=== PATIENT | female | born 1945 | race Caucasian/White ===

== ENCOUNTER 2018-06-12 14:55 | Inpatient (IN) | payer MEDICARE ==
[~2018-06-12] VITALS: Ht 167.6 cm; Wt 82.3 kg
[2018-06-12] MEDS ORDERED: SODIUM CHLORIDE FLUSH 10ML SYR IVF ONE (16:00)
[2018-06-12 16:56] LABS: MICROSCOPIC INDICATED
[2018-06-12 17:02] LABS: CULTURE INDICATED? YES
[2018-06-12 17:04] LABS: MEAN CORPUSCULAR HEMOGLOBIN 30.3 pg (27.0-34.8); MEAN CORPUSCULAR HGB CONC 33.6 g/dL (32.4-35.8); MEAN CORPUSCULAR VOLUME 90.3 fL (80-100); MEAN PLATELET VOLUME 8.5 fL (7.4-10.4); PLATELET COUNT 397 x10^3/uL (130-400); RED BLOOD COUNT 4.58 x10^6/uL (3.82-5.3); RED CELL DISTRIBUTION WIDTH 14.4 % (9.6-15.2)
[2018-06-12 17:14] LABS: ALANINE AMINOTRANSFERASE 15 U/L (12-78); ALBUMIN 3.2 g/dL (3.4-5.0); ANION GAP 11 mmol/L (5-15); CALCIUM 9.7 mg/dL (8.5-10.1); CHLORIDE 118 mmol/L (98-107)
[2018-06-12 17:19] LABS: ALKALINE PHOSPHATASE 131 U/L (45-117); BILIRUBIN,TOTAL 0.6 mg/dL (0.2-1.0); CREATININE 1.35 mg/dL (0.55-1.02); FREE T4 (FREE THYROXINE) 1.35 ng/dL (0.76-1.46); TROPONIN I < 0.015 ng/mL (0.000-0.045)
[2018-06-12 17:25] LABS: BASOPHILS # (AUTO) 0.09 x10^3/uL (0-0.1); BASOPHILS % (AUTO) 0 % (0-1); EOSINOPHILS # (AUTO) 0.68 x10^3/uL (0-0.4); EOSINOPHILS % (AUTO) 3 % (1-7); LYMPHOCYTES # (AUTO) 3.46 x10^3/uL (1-3.4); LYMPHOCYTES % (AUTO) 14 % (22-44); MD SCAN; MONOCYTES # (AUTO) 1.37 x10^3/uL (0.2-0.8); MONOCYTES % (AUTO) 5 % (2-9); NEUTROPHILS # (AUTO) 20.09 x10^3/uL (1.8-6.8); NEUTROPHILS % (AUTO) 78 % (42-75)
[2018-06-12] MEDS ORDERED: ACETAMINOPHEN 325 MG TABLET PO PRN (18:00)
[2018-06-12] MEDS ORDERED: CEFTRIAXONE PMX 1GM/50ML 50 ML IV ONE (18:00)
[2018-06-12] MEDS ORDERED: BISACODYL 10 MG SUPP PR PRN (18:00)
[2018-06-12] MEDS: SODIUM CHLORIDE 0.45% 1,000 ML IV SCH ×2 (18:00→18:13)
[2018-06-12] MEDS ORDERED: SODIUM CHLORIDE 0.9% 1,000ML IVBOLUS ONE (18:00)
[2018-06-12] MEDS ORDERED: POLYETHYLENE GLYCOL 17 GM PACKET PO PRN (18:00)
[2018-06-12] MEDS ORDERED: SODIUM CHLORIDE 0.45% 1,000 ML IV SCH ×2 (18:00)
[2018-06-12] MEDS ORDERED: CEFTRIAXONE PMX 1GM/50ML 50 ML ONE (18:06)
[2018-06-12 18:19] LABS: HEMOGLOBIN A1C 7.8 % (4.2-6.3)
[2018-06-12 19:32] VITALS: BP 109/73
[2018-06-12] MEDS: HEPARIN 5,000 UNITS/ML, 1ML SQ SCH (20:53)
[2018-06-12] MEDS ORDERED: insulin (20:59)
[2018-06-13 00:36] VITALS: BP 137/77
[2018-06-13] MEDS ORDERED: LISI40TA PO (03:21)
[2018-06-13] MEDS ORDERED: ATOR40TA78 PO (03:21)
[2018-06-13] MEDS ORDERED: METF10007 PO (03:21)
[2018-06-13] MEDS ORDERED: CLOP75TA PO (03:21)
[2018-06-13] MEDS ORDERED: ASPI81TA45 PO (03:21)
[2018-06-13] MEDS ORDERED: TAMS0.4C2 PO (03:21)
[2018-06-13] MEDS ORDERED: GABA300C10 PO (03:21)
[2018-06-13] MEDS ORDERED: AMLO10TA6 PO (03:21)
[2018-06-13] MEDS ORDERED: GLIP5TAB22 PO (03:21)
[2018-06-13] MEDS: SODIUM CHLORIDE 0.45% 1,000 ML IV SCH ×2 (03:32→11:30)
[2018-06-13 05:06] LABS: BASOPHILS # (AUTO) 0.04 x10^3/uL (0-0.1); BASOPHILS % (AUTO) 0 % (0-1); EOSINOPHILS # (AUTO) 0.36 x10^3/uL (0-0.4); EOSINOPHILS % (AUTO) 2 % (1-7); LYMPHOCYTES # (AUTO) 2.46 x10^3/uL (1-3.4); LYMPHOCYTES % (AUTO) 14 % (22-44); MD NO; MEAN CORPUSCULAR HEMOGLOBIN 29.5 pg (27.0-34.8); MEAN CORPUSCULAR HGB CONC 32.6 g/dL (32.4-35.8); MEAN CORPUSCULAR VOLUME 90.4 fL (80-100); MEAN PLATELET VOLUME 8.5 fL (7.4-10.4); MONOCYTES # (AUTO) 0.76 x10^3/uL (0.2-0.8); MONOCYTES % (AUTO) 4 % (2-9); NEUTROPHILS # (AUTO) 13.43 x10^3/uL (1.8-6.8); NEUTROPHILS % (AUTO) 79 % (42-75); PLATELET COUNT 300 x10^3/uL (130-400); RED CELL DISTRIBUTION WIDTH 14.4 % (9.6-15.2)
[2018-06-13 05:14] LABS: ALANINE AMINOTRANSFERASE 14 U/L (12-78); ALBUMIN 2.8 g/dL (3.4-5.0); ANION GAP 6 mmol/L (5-15); CALCIUM 9.6 mg/dL (8.5-10.1); CHLORIDE 118 mmol/L (98-107)
[2018-06-13 05:17] LABS: ALKALINE PHOSPHATASE 120 U/L (45-117); BILIRUBIN,TOTAL 0.7 mg/dL (0.2-1.0); CREATININE 1.11 mg/dL (0.55-1.02); TOTAL PROTEIN 6.3 g/dL (6.4-8.2)
[2018-06-13] MEDS: HEPARIN 5,000 UNITS/ML, 1ML SQ SCH ×3 (05:47→21:54)
[2018-06-13] MEDS ORDERED: CEFTRIAXONE PMX 1GM/50ML 50 ML IV SCH (06:00)
[2018-06-13 08:53] VITALS: BP 153/83
[2018-06-13] MEDS: SENNA/DOCUSATE TABLET PO SCH (09:45)
[2018-06-13 12:30] VITALS: BP 145/82
[2018-06-13] MEDS: SODIUM CHLORIDE 0.9% 1,000 ML IV SCH ×2 (13:59→21:55)
[2018-06-13] MEDS: CEFTRIAXONE PMX 2GM/50ML 50 ML IV SCH (18:30)
[2018-06-13 19:26] VITALS: BP 152/85
[2018-06-13] MEDS: ATORVASTATIN 20 MG TABLET PO SCH (21:54)
[2018-06-14 00:36] VITALS: BP 154/79
[2018-06-14 05:04] LABS: BASOPHILS # (AUTO) 0.06 x10^3/uL (0-0.1); BASOPHILS % (AUTO) 0 % (0-1); EOSINOPHILS # (AUTO) 0.46 x10^3/uL (0-0.4); EOSINOPHILS % (AUTO) 3 % (1-7); LYMPHOCYTES # (AUTO) 2.18 x10^3/uL (1-3.4); LYMPHOCYTES % (AUTO) 13 % (22-44); MD NO; MEAN CORPUSCULAR HEMOGLOBIN 30.2 pg (27.0-34.8); MEAN CORPUSCULAR HGB CONC 33.6 g/dL (32.4-35.8); MEAN CORPUSCULAR VOLUME 89.9 fL (80-100); MEAN PLATELET VOLUME 8.6 fL (7.4-10.4); MONOCYTES # (AUTO) 0.67 x10^3/uL (0.2-0.8); MONOCYTES % (AUTO) 4 % (2-9); NEUTROPHILS # (AUTO) 12.84 x10^3/uL (1.8-6.8); NEUTROPHILS % (AUTO) 79 % (42-75); PLATELET COUNT 288 x10^3/uL (130-400); RED BLOOD COUNT 5.26 x10^6/uL (3.82-5.3); RED CELL DISTRIBUTION WIDTH 14.2 % (9.6-15.2)
[2018-06-14 05:10] LABS: ANION GAP 5 mmol/L (5-15); CALCIUM 9.2 mg/dL (8.5-10.1); CHLORIDE 114 mmol/L (98-107); CREATININE 0.47 mg/dL (0.55-1.02)
[2018-06-14] MEDS: HEPARIN 5,000 UNITS/ML, 1ML SQ SCH ×3 (05:41→20:59)
[2018-06-14] MEDS: ASPIRIN 81 MG TABLET EC PO SCH ×2 (05:41→05:49)
[2018-06-14] MEDS: SODIUM CHLORIDE 0.9% 1,000 ML IV SCH (05:42)
[2018-06-14 07:00] VITALS: BP 138/78
[2018-06-14] MEDS ORDERED: POTASSIUM CHLORIDE 20 MEQ TAB.ER.PRT PO ONE (07:00)
[2018-06-14] MEDS: CLOPIDOGREL 75 MG TABLET PO SCH (07:50)
[2018-06-14] MEDS: SENNA/DOCUSATE TABLET PO SCH (07:50)
[2018-06-14] MEDS ORDERED: SODIUM CHLORIDE 0.45% 1,000 ML IV SCH (08:30)
[2018-06-14] MEDS ORDERED: POTASSIUM CHLORIDE 40 MEQ in SODIUM CHLORIDE 0.9% 500 ML IV ONE (08:30)
[2018-06-14] MEDS ORDERED: INSULIN LISPRO 100 UNITS/ML, PEN SQ-INSULIN SCH (09:00)
[2018-06-14 12:19] VITALS: BP 155/91
[2018-06-14] MEDS: INSULIN LISPRO 100 UNITS/ML, PEN SQ-INSULIN SCH ×2 (16:09→21:00)
[2018-06-14] MEDS: D5%-0.45% NACL 1,000 ML IV SCH (16:30)
[2018-06-14] MEDS: CEFTRIAXONE PMX 2GM/50ML 50 ML IV SCH (17:53)
[2018-06-14 18:42] VITALS: BP 144/79
[2018-06-14] MEDS: ATORVASTATIN 20 MG TABLET PO SCH (20:58)
[2018-06-15 00:45] VITALS: BP 149/81
[2018-06-15] MEDS: D5%-0.45% NACL 1,000 ML IV SCH ×3 (03:35→22:45)
[2018-06-15 05:12] LABS: BASOPHILS # (AUTO) 0.06 x10^3/uL (0-0.1); BASOPHILS % (AUTO) 0 % (0-1); EOSINOPHILS # (AUTO) 0.29 x10^3/uL (0-0.4); EOSINOPHILS % (AUTO) 2 % (1-7); LYMPHOCYTES # (AUTO) 2.51 x10^3/uL (1-3.4); LYMPHOCYTES % (AUTO) 19 % (22-44); MD NO; MEAN CORPUSCULAR HGB CONC 33.4 g/dL (32.4-35.8); MEAN CORPUSCULAR VOLUME 89.9 fL (80-100); MEAN PLATELET VOLUME 8.6 fL (7.4-10.4); MONOCYTES # (AUTO) 0.66 x10^3/uL (0.2-0.8); MONOCYTES % (AUTO) 5 % (2-9); NEUTROPHILS # (AUTO) 9.92 x10^3/uL (1.8-6.8); NEUTROPHILS % (AUTO) 74 % (42-75); PLATELET COUNT 278 x10^3/uL (130-400); RED BLOOD COUNT 4.84 x10^6/uL (3.82-5.3); RED CELL DISTRIBUTION WIDTH 14.3 % (9.6-15.2)
[2018-06-15 05:22] LABS: CHLORIDE 111 mmol/L (98-107)
[2018-06-15 05:26] LABS: ANION GAP 7 mmol/L (5-15); CALCIUM 8.5 mg/dL (8.5-10.1); CREATININE 0.44 mg/dL (0.55-1.02)
[2018-06-15] MEDS: ASPIRIN 81 MG TABLET EC PO SCH (05:30)
[2018-06-15] MEDS: HEPARIN 5,000 UNITS/ML, 1ML SQ SCH ×3 (05:30→19:41)
[2018-06-15 07:15] VITALS: BP 150/83
[2018-06-15] MEDS: INSULIN LISPRO 100 UNITS/ML, PEN SQ-INSULIN SCH ×4 (07:52→21:09)
[2018-06-15] MEDS: CLOPIDOGREL 75 MG TABLET PO SCH (07:52)
[2018-06-15] MEDS: SENNA/DOCUSATE TABLET PO SCH (07:52)
[2018-06-15] MEDS ORDERED: POTASSIUM CHLORIDE 20 MEQ TAB.ER.PRT ONE (12:52)
[2018-06-15] MEDS: POTASSIUM CHLORIDE 20 MEQ TAB.ER.PRT PO SCH (12:56)
[2018-06-15 13:10] VITALS: BP 131/80
[2018-06-15] MEDS: CEFTRIAXONE PMX 2GM/50ML 50 ML IV SCH (18:45)
[2018-06-15 19:00] VITALS: BP 132/79
[2018-06-15] MEDS: ATORVASTATIN 20 MG TABLET PO SCH (19:41)
[2018-06-16 02:00] VITALS: BP 135/81
[2018-06-16] MEDS: HEPARIN 5,000 UNITS/ML, 1ML SQ SCH ×3 (05:00→21:00)
[2018-06-16 05:28] LABS: BASOPHILS # (AUTO) 0.06 x10^3/uL (0-0.1); BASOPHILS % (AUTO) 0 % (0-1); EOSINOPHILS # (AUTO) 0.29 x10^3/uL (0-0.4); EOSINOPHILS % (AUTO) 2 % (1-7); LYMPHOCYTES % (AUTO) 22 % (22-44); MD NO; MEAN CORPUSCULAR HEMOGLOBIN 30.2 pg (27.0-34.8); MEAN CORPUSCULAR HGB CONC 33.9 g/dL (32.4-35.8); MEAN CORPUSCULAR VOLUME 89.3 fL (80-100); MEAN PLATELET VOLUME 8.2 fL (7.4-10.4); MONOCYTES # (AUTO) 0.88 x10^3/uL (0.2-0.8); MONOCYTES % (AUTO) 7 % (2-9); NEUTROPHILS # (AUTO) 9.36 x10^3/uL (1.8-6.8); NEUTROPHILS % (AUTO) 69 % (42-75); PLATELET COUNT 269 x10^3/uL (130-400); RED CELL DISTRIBUTION WIDTH 14.1 % (9.6-15.2)
[2018-06-16 05:36] LABS: ALBUMIN 2.7 g/dL (3.4-5.0); ANION GAP 8 mmol/L (5-15); CALCIUM 8.6 mg/dL (8.5-10.1); CHLORIDE 110 mmol/L (98-107)
[2018-06-16 05:41] LABS: ALANINE AMINOTRANSFERASE 14 U/L (12-78); ALKALINE PHOSPHATASE 109 U/L (45-117); BILIRUBIN,TOTAL 0.6 mg/dL (0.2-1.0); CREATININE 0.49 mg/dL (0.55-1.02); TOTAL PROTEIN 5.9 g/dL (6.4-8.2)
[2018-06-16 07:00] VITALS: BP 158/88
[2018-06-16] MEDS: INSULIN LISPRO 100 UNITS/ML, PEN SQ-INSULIN SCH ×4 (07:00→20:53)
[2018-06-16] MEDS: SENNA/DOCUSATE TABLET PO SCH (08:57)
[2018-06-16] MEDS: AMLODIPINE 5 MG TABLET PO SCH (09:00)
[2018-06-16] MEDS: CLOPIDOGREL 75 MG TABLET PO SCH (09:07)
[2018-06-16] MEDS: ASPIRIN 81 MG TABLET EC PO SCH (09:07)
[2018-06-16] MEDS: POTASSIUM CHLORIDE 20 MEQ TAB.ER.PRT PO SCH ×2 (09:07→17:00)
[2018-06-16] MEDS: D5%-0.45% NACL 1,000 ML IV SCH ×2 (09:08→17:42)
[2018-06-16 13:00] VITALS: BP 180/103
[2018-06-16 13:28] VITALS: BP 179/101
[2018-06-16] MEDS: hydrALAzine 20 MG/ML, 1ML IV PRN (14:25)
[2018-06-16] MEDS: ONDANSETRON ODT 4 MG PO PRN ×2 (14:30→20:15)
[2018-06-16 15:01] VITALS: BP 162/68
[2018-06-16] MEDS: CEFTRIAXONE PMX 2GM/50ML 50 ML IV SCH (17:41)
[2018-06-16 18:32] VITALS: BP 153/74
[2018-06-16] MEDS: ATORVASTATIN 20 MG TABLET PO SCH (20:16)
[2018-06-17 00:51] VITALS: BP 147/79
[2018-06-17] MEDS: D5%-0.45% NACL 1,000 ML IV SCH (03:10)
[2018-06-17] MEDS: HEPARIN 5,000 UNITS/ML, 1ML SQ SCH ×3 (05:00→22:01)
[2018-06-17 06:08] LABS: MEAN CORPUSCULAR HEMOGLOBIN 29.8 pg (27.0-34.8); MEAN CORPUSCULAR HGB CONC 33.5 g/dL (32.4-35.8); PLATELET COUNT 320 x10^3/uL (130-400); RED BLOOD COUNT 5.76 x10^6/uL (3.82-5.3); RED CELL DISTRIBUTION WIDTH 14.2 % (9.6-15.2)
[2018-06-17 06:17] LABS: ANION GAP 11 mmol/L (5-15); CALCIUM 9.1 mg/dL (8.5-10.1); CHLORIDE 105 mmol/L (98-107)
[2018-06-17 06:20] LABS: ALANINE AMINOTRANSFERASE 22 U/L (12-78); ALKALINE PHOSPHATASE 145 U/L (45-117); BILIRUBIN,TOTAL 0.5 mg/dL (0.2-1.0); CREATININE 0.66 mg/dL (0.55-1.02); TOTAL PROTEIN 6.7 g/dL (6.4-8.2)
[2018-06-17 06:26] LABS: BASOPHILS % (AUTO) 0 % (0-1); EOSINOPHILS # (AUTO) 0.02 x10^3/uL (0-0.4); EOSINOPHILS % (AUTO) 0 % (1-7); LYMPHOCYTES # (AUTO) 1.13 x10^3/uL (1-3.4); LYMPHOCYTES % (AUTO) 4 % (22-44); MD SCAN; MONOCYTES # (AUTO) 1.39 x10^3/uL (0.2-0.8); MONOCYTES % (AUTO) 5 % (2-9); NEUTROPHILS # (AUTO) 26.28 x10^3/uL (1.8-6.8); NEUTROPHILS % (AUTO) 91 % (42-75)
[2018-06-17 06:55] VITALS: BP 159/97
[2018-06-17] MEDS: ASPIRIN 81 MG TABLET EC PO SCH (08:00)
[2018-06-17] MEDS: INSULIN LISPRO 100 UNITS/ML, PEN SQ-INSULIN SCH ×4 (08:07→20:04)
[2018-06-17] MEDS: ONDANSETRON ODT 4 MG PO PRN (08:19)
[2018-06-17] MEDS: LISINOPRIL 20 MG TABLET PO SCH (09:00)
[2018-06-17] MEDS: POTASSIUM CHLORIDE 20 MEQ TAB.ER.PRT PO SCH ×3 (09:00→20:04)
[2018-06-17] MEDS: CLOPIDOGREL 75 MG TABLET PO SCH (09:00)
[2018-06-17] MEDS: SENNA/DOCUSATE TABLET PO SCH (09:00)
[2018-06-17] MEDS: AMLODIPINE 5 MG TABLET PO SCH (09:00)
[2018-06-17] MEDS: SODIUM CHLORIDE 0.9% 1,000 ML IV SCH ×2 (13:13→22:01)
[2018-06-17 13:15] VITALS: BP 142/84
[2018-06-17] MEDS: CEFTRIAXONE PMX 2GM/50ML 50 ML IV SCH (17:56)
[2018-06-17 18:38] VITALS: BP 109/70
[2018-06-17] MEDS: TAMSULOSIN 0.4 MG CAP.ER.24H PO SCH (20:04)
[2018-06-17] MEDS: ATORVASTATIN 20 MG TABLET PO SCH (20:05)
[2018-06-18 00:07] VITALS: BP 136/81
[2018-06-18] MEDS: ASPIRIN 81 MG TABLET EC PO SCH (05:33)
[2018-06-18 05:34] LABS: MEAN CORPUSCULAR HEMOGLOBIN 30.1 pg (27.0-34.8); MEAN CORPUSCULAR HGB CONC 33.7 g/dL (32.4-35.8); MEAN CORPUSCULAR VOLUME 89.1 fL (80-100); MEAN PLATELET VOLUME 9.2 fL (7.4-10.4); PLATELET COUNT 269 x10^3/uL (130-400); RED BLOOD COUNT 5.06 x10^6/uL (3.82-5.3); RED CELL DISTRIBUTION WIDTH 14.4 % (9.6-15.2)
[2018-06-18] MEDS: HEPARIN 5,000 UNITS/ML, 1ML SQ SCH ×3 (05:34→20:07)
[2018-06-18 05:45] LABS: CHLORIDE 110 mmol/L (98-107)
[2018-06-18 05:57] LABS: BASOPHILS # (AUTO) 0.06 x10^3/uL (0-0.1); BASOPHILS % (AUTO) 0 % (0-1); EOSINOPHILS % (AUTO) 3 % (1-7); LYMPHOCYTES # (AUTO) 2.36 x10^3/uL (1-3.4); LYMPHOCYTES % (AUTO) 12 % (22-44); MD SCAN; MONOCYTES # (AUTO) 1.28 x10^3/uL (0.2-0.8); MONOCYTES % (AUTO) 6 % (2-9); NEUTROPHILS # (AUTO) 15.71 x10^3/uL (1.8-6.8); NEUTROPHILS % (AUTO) 79 % (42-75)
[2018-06-18 06:01] LABS: ALANINE AMINOTRANSFERASE 22 U/L (12-78); ALBUMIN 2.6 g/dL (3.4-5.0); ALKALINE PHOSPHATASE 124 U/L (45-117); ANION GAP 6 mmol/L (5-15); BILIRUBIN,TOTAL 0.9 mg/dL (0.2-1.0); CREATININE 0.65 mg/dL (0.55-1.02); TOTAL PROTEIN 5.7 g/dL (6.4-8.2)
[2018-06-18] MEDS: INSULIN LISPRO 100 UNITS/ML, PEN SQ-INSULIN SCH ×4 (07:00→21:00)
[2018-06-18] MEDS ORDERED: POTASSIUM CHLORIDE 40 MEQ in SODIUM CHLORIDE 0.9% 500 ML IV ONE (07:30)
[2018-06-18 08:00] VITALS: BP 162/90
[2018-06-18] MEDS: SENNA/DOCUSATE TABLET PO SCH (08:17)
[2018-06-18] MEDS: SODIUM CHLORIDE 0.9% 1,000 ML IV SCH ×2 (08:20→17:51)
[2018-06-18] MEDS: CLOPIDOGREL 75 MG TABLET PO SCH ×2 (08:21→08:34)
[2018-06-18] MEDS: POTASSIUM CHLORIDE 20 MEQ TAB.ER.PRT PO SCH ×3 (08:22→21:00)
[2018-06-18] MEDS: AMLODIPINE 5 MG TABLET PO SCH (08:22)
[2018-06-18] MEDS: LISINOPRIL 20 MG TABLET PO SCH (08:23)
[2018-06-18] MEDS: ONDANSETRON ODT 4 MG PO PRN (10:45)
[2018-06-18 14:00] VITALS: BP 176/101
[2018-06-18] MEDS: hydrALAzine 20 MG/ML, 1ML IV PRN ×2 (14:56→20:08)
[2018-06-18 15:00] VITALS: BP 151/77
[2018-06-18] MEDS: CEFTRIAXONE PMX 2GM/50ML 50 ML IV SCH (17:51)
[2018-06-18 18:50] VITALS: BP 186/96
[2018-06-18] MEDS: TAMSULOSIN 0.4 MG CAP.ER.24H PO SCH (21:00)
[2018-06-18] MEDS: ATORVASTATIN 20 MG TABLET PO SCH (21:00)
[2018-06-19 00:08] VITALS: BP 184/81
[2018-06-19 05:26] LABS: MEAN CORPUSCULAR HEMOGLOBIN 30.2 pg (27.0-34.8); MEAN CORPUSCULAR HGB CONC 33.6 g/dL (32.4-35.8); MEAN CORPUSCULAR VOLUME 89.9 fL (80-100); MEAN PLATELET VOLUME 9.3 fL (7.4-10.4); PLATELET COUNT 264 x10^3/uL (130-400); RED BLOOD COUNT 4.97 x10^6/uL (3.82-5.3); RED CELL DISTRIBUTION WIDTH 14.7 % (9.6-15.2)
[2018-06-19] MEDS: ASPIRIN 81 MG TABLET EC PO SCH ×2 (05:31→19:49)
[2018-06-19 05:32] LABS: CHLORIDE 115 mmol/L (98-107)
[2018-06-19 05:44] LABS: ALANINE AMINOTRANSFERASE 20 U/L (12-78); ALBUMIN 2.6 g/dL (3.4-5.0); ALKALINE PHOSPHATASE 123 U/L (45-117); ANION GAP 8 mmol/L (5-15); BILIRUBIN,TOTAL 0.5 mg/dL (0.2-1.0); CALCIUM 9.5 mg/dL (8.5-10.1); CREATININE 0.54 mg/dL (0.55-1.02); TOTAL PROTEIN 5.7 g/dL (6.4-8.2)
[2018-06-19] MEDS: HEPARIN 5,000 UNITS/ML, 1ML SQ SCH (06:00)
[2018-06-19] MEDS: hydrALAzine 20 MG/ML, 1ML IV PRN (06:00)
[2018-06-19] MEDS: ONDANSETRON 2MG/ML, 2ML IVPush PRN ×2 (06:00→20:00)
[2018-06-19 06:41] VITALS: BP 182/66
[2018-06-19] MEDS ORDERED: MAGNESIUM SULFATE PMX 2GM/50ML 50 ML IV ONE ×3 (07:00→09:00)
[2018-06-19] MEDS: METOPROLOL TARTRATE 25 MG TABLET PO SCH ×2 (07:00→16:55)
[2018-06-19] MEDS: SODIUM CHLORIDE 0.45% 1,000 ML IV SCH ×2 (07:33→20:02)
[2018-06-19] MEDS: ENOXAPARIN 40 MG/0.4 ML SQ SCH (07:33)
[2018-06-19] MEDS: PIPERACILLIN/TAZO/PMX 3.375GM 50 ML IV SCH ×3 (07:34→20:00)
[2018-06-19] MEDS: HYDROCHLOROTHIAZIDE 25 MG TABLET PO SCH (07:34)
[2018-06-19] MEDS: AMLODIPINE 5 MG TABLET PO SCH ×2 (07:35→07:45)
[2018-06-19] MEDS: POTASSIUM CHLORIDE 20 MEQ TAB.ER.PRT PO SCH ×4 (07:35→19:46)
[2018-06-19] MEDS: LISINOPRIL 20 MG TABLET PO SCH ×2 (07:35→07:45)
[2018-06-19] MEDS: CLOPIDOGREL 75 MG TABLET PO SCH ×2 (07:35→07:45)
[2018-06-19] MEDS: SENNA/DOCUSATE TABLET PO SCH (07:45)
[2018-06-19] MEDS: INSULIN LISPRO 100 UNITS/ML, PEN SQ-INSULIN SCH ×4 (07:55→20:20)
[2018-06-19 08:23] LABS: MD YES
[2018-06-19 08:27] LABS: <PLATELET ESTIMATE> ADEQUATE; <PLT MORPHOLOGY> NORMAL PLT MORPH; <RBC MORPHOLOGY> NORMAL; LYMPH#(MANUAL) 1.22 x10^3/uL (1-3.4); LYMPHS% (MANUAL) 6 % (22-44); MONOS#(MANUAL) 1.22 x10^3/uL (0.3-2.7); MONOS% (MANUAL) 6 % (2-9); SEG#(MANUAL) 17.86 x10^3/uL (1.8-6.8); SEGS% (MANUAL) 88 % (42-75)
[2018-06-19 09:00] VITALS: BP 160/72
[2018-06-19] MEDS ORDERED: OMNIPAQUE 350 MG/ML, 100ML BOTTLE ONE (11:13)
[2018-06-19] MEDS: MAGNESIUM HYDROXIDE 8%, 30ML UDC PO SCH ×2 (12:30→13:41)
[2018-06-19 13:46] VITALS: BP 156/80
[2018-06-19 13:50] VITALS: BP 160/80
[2018-06-19 18:45] VITALS: BP 130/70
[2018-06-19] MEDS: TAMSULOSIN 0.4 MG CAP.ER.24H PO SCH (19:46)
[2018-06-19] MEDS: ATORVASTATIN 20 MG TABLET PO SCH (19:47)
[2018-06-20] MEDS: PIPERACILLIN/TAZO/PMX 3.375GM 50 ML IV SCH ×2 (01:00→11:23)
[2018-06-20 01:32] VITALS: BP 158/79
[2018-06-20] MEDS: METOPROLOL TARTRATE 25 MG TABLET PO SCH ×3 (04:46→16:29)
[2018-06-20 05:28] LABS: MEAN CORPUSCULAR HEMOGLOBIN 29.6 pg (27.0-34.8); MEAN CORPUSCULAR HGB CONC 32.8 g/dL (32.4-35.8); MEAN CORPUSCULAR VOLUME 90.1 fL (80-100); MEAN PLATELET VOLUME 9.4 fL (7.4-10.4); PLATELET COUNT 237 x10^3/uL (130-400); RED BLOOD COUNT 4.89 x10^6/uL (3.82-5.3); RED CELL DISTRIBUTION WIDTH 14.7 % (9.6-15.2)
[2018-06-20 05:49] LABS: CHLORIDE 116 mmol/L (98-107)
[2018-06-20 06:09] LABS: BASOPHILS # (AUTO) 0.03 x10^3/uL (0-0.1); BASOPHILS % (AUTO) 0 % (0-1); EOSINOPHILS # (AUTO) 0.29 x10^3/uL (0-0.4); EOSINOPHILS % (AUTO) 2 % (1-7); LYMPHOCYTES # (AUTO) 2.32 x10^3/uL (1-3.4); LYMPHOCYTES % (AUTO) 13 % (22-44); MD SCAN; MONOCYTES # (AUTO) 1.02 x10^3/uL (0.2-0.8); MONOCYTES % (AUTO) 6 % (2-9); NEUTROPHILS # (AUTO) 14.61 x10^3/uL (1.8-6.8); NEUTROPHILS % (AUTO) 80 % (42-75)
[2018-06-20 06:20] LABS: ALBUMIN 2.4 g/dL (3.4-5.0); ANION GAP 9 mmol/L (5-15); CALCIUM 9.3 mg/dL (8.5-10.1)
[2018-06-20 06:23] LABS: ALANINE AMINOTRANSFERASE 17 U/L (12-78); ALKALINE PHOSPHATASE 107 U/L (45-117); BILIRUBIN,TOTAL 0.8 mg/dL (0.2-1.0); CREATININE 0.56 mg/dL (0.55-1.02); TOTAL PROTEIN 5.4 g/dL (6.4-8.2)
[2018-06-20 06:45] VITALS: BP 156/81
[2018-06-20] MEDS ORDERED: MAGNESIUM SULFATE PMX 2GM/50ML 50 ML IV ONE (07:00)
[2018-06-20] MEDS: INSULIN LISPRO 100 UNITS/ML, PEN SQ-INSULIN SCH ×4 (07:00→21:00)
[2018-06-20] MEDS: HYDROCHLOROTHIAZIDE 25 MG TABLET PO SCH (08:01)
[2018-06-20] MEDS: MAGNESIUM HYDROXIDE 8%, 30ML UDC PO SCH (08:01)
[2018-06-20] MEDS: AMLODIPINE 5 MG TABLET PO SCH (08:01)
[2018-06-20] MEDS: LISINOPRIL 20 MG TABLET PO SCH (08:02)
[2018-06-20] MEDS: SENNA/DOCUSATE TABLET PO SCH (08:02)
[2018-06-20] MEDS: CLOPIDOGREL 75 MG TABLET PO SCH (08:02)
[2018-06-20] MEDS ORDERED: DEXTROSE 4 GM TAB.CHEW PO PRN (10:30)
[2018-06-20] MEDS ORDERED: GLUCAGON 1 MG IM PRN (10:30)
[2018-06-20] MEDS: SODIUM CHLORIDE FLUSH 10ML SYR IVF SCH ×2 (10:30→20:56)
[2018-06-20] MEDS ORDERED: DEXTROSE 50%, 50ML SYRINGE IVPush PRN (10:30)
[2018-06-20] MEDS: POTASSIUM CHLORIDE 20 MEQ TAB.ER.PRT PO SCH ×3 (11:00→21:00)
[2018-06-20] MEDS: D5%-0.45NACL+KCL 40MEQ 1,000 ML IV SCH ×2 (11:27→14:46)
[2018-06-20] MEDS: ENOXAPARIN 40 MG/0.4 ML SQ SCH (12:09)
[2018-06-20 14:41] VITALS: BP 149/72
[2018-06-20] MEDS ORDERED: DIAZEPAM 5 MG TABLET ONE (15:41)
[2018-06-20] MEDS: CEFTRIAXONE PMX 2GM/50ML 50 ML IV SCH (16:24)
[2018-06-20 20:00] VITALS: BP 170/69
[2018-06-20] MEDS: ATORVASTATIN 20 MG TABLET PO SCH ×2 (20:57→21:00)
[2018-06-20] MEDS: TAMSULOSIN 0.4 MG CAP.ER.24H PO SCH ×2 (20:57→21:00)
[2018-06-21 01:31] VITALS: BP 169/90
[2018-06-21] MEDS: D5%-0.45NACL+KCL 40MEQ 1,000 ML IV SCH ×2 (03:07→21:34)
[2018-06-21 04:43] LABS: BASOPHILS # (AUTO) 0.05 x10^3/uL (0-0.1); BASOPHILS % (AUTO) 0 % (0-1); EOSINOPHILS # (AUTO) 0.38 x10^3/uL (0-0.4); EOSINOPHILS % (AUTO) 2 % (1-7); LYMPHOCYTES # (AUTO) 2.03 x10^3/uL (1-3.4); LYMPHOCYTES % (AUTO) 13 % (22-44); MD NO; MEAN CORPUSCULAR HGB CONC 33.9 g/dL (32.4-35.8); MEAN CORPUSCULAR VOLUME 88.4 fL (80-100); MEAN PLATELET VOLUME 8.4 fL (7.4-10.4); MONOCYTES % (AUTO) 6 % (2-9); NEUTROPHILS # (AUTO) 12.39 x10^3/uL (1.8-6.8); NEUTROPHILS % (AUTO) 78 % (42-75); PLATELET COUNT 253 x10^3/uL (130-400); RED BLOOD COUNT 4.78 x10^6/uL (3.82-5.3); RED CELL DISTRIBUTION WIDTH 14.9 % (9.6-15.2)
[2018-06-21 04:56] LABS: ALBUMIN 2.4 g/dL (3.4-5.0); CALCIUM 8.4 mg/dL (8.5-10.1); CHLORIDE 112 mmol/L (98-107)
[2018-06-21 05:02] LABS: ALANINE AMINOTRANSFERASE 16 U/L (12-78); ALKALINE PHOSPHATASE 106 U/L (45-117); ANION GAP 7 mmol/L (5-15); BILIRUBIN,TOTAL 0.7 mg/dL (0.2-1.0); CREATININE 0.36 mg/dL (0.55-1.02); TOTAL PROTEIN 5.5 g/dL (6.4-8.2)
[2018-06-21] MEDS: INSULIN LISPRO 100 UNITS/ML, PEN SQ-INSULIN SCH ×4 (07:00→21:00)
[2018-06-21] MEDS ORDERED: POTASSIUM CHLORIDE 40 MEQ in SODIUM CHLORIDE 0.9% 500 ML IV ONE (07:30)
[2018-06-21 07:41] VITALS: BP 173/89
[2018-06-21] MEDS: ASPIRIN 81 MG TABLET EC PO SCH (08:00)
[2018-06-21] MEDS: METOPROLOL TARTRATE 25 MG TABLET PO SCH ×2 (08:00→18:00)
[2018-06-21] MEDS: POTASSIUM CHLORIDE 20 MEQ TAB.ER.PRT PO SCH ×4 (08:00→21:00)
[2018-06-21] MEDS: MAGNESIUM HYDROXIDE 8%, 30ML UDC PO SCH (09:00)
[2018-06-21] MEDS: SODIUM CHLORIDE FLUSH 10ML SYR IVF SCH ×2 (09:00→21:00)
[2018-06-21] MEDS: AMLODIPINE 5 MG TABLET PO SCH (09:00)
[2018-06-21] MEDS: SENNA/DOCUSATE TABLET PO SCH (09:00)
[2018-06-21] MEDS: HYDROCHLOROTHIAZIDE 25 MG TABLET PO SCH ×2 (09:00→21:00)
[2018-06-21] MEDS: CLOPIDOGREL 75 MG TABLET PO SCH (09:00)
[2018-06-21] MEDS: LISINOPRIL 20 MG TABLET PO SCH (09:00)
[2018-06-21] MEDS ORDERED: MAGNESIUM SULFATE PMX 2GM/50ML 50 ML IV ONE (10:30)
[2018-06-21] MEDS ORDERED: MAGNESIUM SULFATE PMX 4GM/100M 100 ML IVPB ONE (10:45)
[2018-06-21 12:26] VITALS: BP 161/72
[2018-06-21] MEDS: ENOXAPARIN 40 MG/0.4 ML SQ SCH (16:06)
[2018-06-21] MEDS: CEFTRIAXONE PMX 2GM/50ML 50 ML IV SCH (16:06)
[2018-06-21 18:37] LABS: ANION GAP 8 mmol/L (5-15); CALCIUM 8.3 mg/dL (8.5-10.1); CHLORIDE 108 mmol/L (98-107); CREATININE 0.28 mg/dL (0.55-1.02)
[2018-06-21 19:30] VITALS: BP 139/75
[2018-06-21] MEDS: TAMSULOSIN 0.4 MG CAP.ER.24H PO SCH (21:00)
[2018-06-21] MEDS: ATORVASTATIN 20 MG TABLET PO SCH (21:00)
[2018-06-22 01:57] VITALS: BP 158/99
[2018-06-22] MEDS: ASPIRIN 81 MG TABLET EC PO SCH (06:00)
[2018-06-22] MEDS: METOPROLOL TARTRATE 25 MG TABLET PO SCH ×2 (06:00→17:25)
[2018-06-22] MEDS: POTASSIUM CHLORIDE 20 MEQ TAB.ER.PRT PO SCH ×4 (06:00→20:28)
[2018-06-22 06:16] LABS: BASOPHILS # (AUTO) 0.05 x10^3/uL (0-0.1); BASOPHILS % (AUTO) 0 % (0-1); EOSINOPHILS # (AUTO) 0.36 x10^3/uL (0-0.4); EOSINOPHILS % (AUTO) 3 % (1-7); LYMPHOCYTES # (AUTO) 2.03 x10^3/uL (1-3.4); LYMPHOCYTES % (AUTO) 15 % (22-44); MD NO; MEAN CORPUSCULAR HEMOGLOBIN 30.3 pg (27.0-34.8); MEAN CORPUSCULAR HGB CONC 34.3 g/dL (32.4-35.8); MEAN CORPUSCULAR VOLUME 88.3 fL (80-100); MEAN PLATELET VOLUME 8.9 fL (7.4-10.4); MONOCYTES # (AUTO) 0.91 x10^3/uL (0.2-0.8); MONOCYTES % (AUTO) 7 % (2-9); NEUTROPHILS # (AUTO) 10.03 x10^3/uL (1.8-6.8); NEUTROPHILS % (AUTO) 75 % (42-75); PLATELET COUNT 263 x10^3/uL (130-400); RED BLOOD COUNT 4.68 x10^6/uL (3.82-5.3); RED CELL DISTRIBUTION WIDTH 14.5 % (9.6-15.2)
[2018-06-22 06:39] LABS: CHLORIDE 107 mmol/L (98-107)
[2018-06-22 06:56] LABS: ALANINE AMINOTRANSFERASE 13 U/L (12-78); ALBUMIN 2.4 g/dL (3.4-5.0); ALKALINE PHOSPHATASE 104 U/L (45-117); ANION GAP 8 mmol/L (5-15); BILIRUBIN,TOTAL 0.7 mg/dL (0.2-1.0); CALCIUM 8.1 mg/dL (8.5-10.1); CREATININE 0.29 mg/dL (0.55-1.02); TOTAL PROTEIN 5.4 g/dL (6.4-8.2)
[2018-06-22] MEDS: INSULIN LISPRO 100 UNITS/ML, PEN SQ-INSULIN SCH ×4 (07:00→20:28)
[2018-06-22 07:08] VITALS: BP 167/95
[2018-06-22] MEDS ORDERED: MAGNESIUM SULFATE PMX 2GM/50ML 50 ML IV ONE (08:00)
[2018-06-22] MEDS: MAGNESIUM HYDROXIDE 8%, 30ML UDC PO SCH (09:00)
[2018-06-22] MEDS: SENNA/DOCUSATE TABLET PO SCH (09:00)
[2018-06-22] MEDS: LISINOPRIL 20 MG TABLET PO SCH (09:00)
[2018-06-22] MEDS: AMLODIPINE 5 MG TABLET PO SCH (09:00)
[2018-06-22] MEDS: SODIUM CHLORIDE FLUSH 10ML SYR IVF SCH ×2 (09:00→20:27)
[2018-06-22] MEDS: CLOPIDOGREL 75 MG TABLET PO SCH (09:00)
[2018-06-22] MEDS: HYDROCHLOROTHIAZIDE 25 MG TABLET PO SCH ×2 (09:00→20:28)
[2018-06-22 14:01] VITALS: BP 142/67
[2018-06-22] MEDS: CEFTRIAXONE PMX 2GM/50ML 50 ML IV SCH (17:32)
[2018-06-22] MEDS: ENOXAPARIN 40 MG/0.4 ML SQ SCH (17:32)
[2018-06-22 19:01] VITALS: BP 172/85
[2018-06-22] MEDS: TAMSULOSIN 0.4 MG CAP.ER.24H PO SCH (20:27)
[2018-06-22] MEDS: ATORVASTATIN 20 MG TABLET PO SCH (20:28)
[2018-06-23 01:03] VITALS: BP 164/76
[2018-06-23 04:59] LABS: BASOPHILS # (AUTO) 0.06 x10^3/uL (0-0.1); BASOPHILS % (AUTO) 0 % (0-1); EOSINOPHILS # (AUTO) 0.37 x10^3/uL (0-0.4); EOSINOPHILS % (AUTO) 3 % (1-7); LYMPHOCYTES # (AUTO) 2.24 x10^3/uL (1-3.4); LYMPHOCYTES % (AUTO) 15 % (22-44); MD NO; MEAN CORPUSCULAR HEMOGLOBIN 30.1 pg (27.0-34.8); MEAN CORPUSCULAR HGB CONC 33.8 g/dL (32.4-35.8); MEAN CORPUSCULAR VOLUME 88.8 fL (80-100); MEAN PLATELET VOLUME 8.3 fL (7.4-10.4); MONOCYTES # (AUTO) 0.94 x10^3/uL (0.2-0.8); MONOCYTES % (AUTO) 6 % (2-9); NEUTROPHILS # (AUTO) 11.19 x10^3/uL (1.8-6.8); NEUTROPHILS % (AUTO) 76 % (42-75); PLATELET COUNT 277 x10^3/uL (130-400); RED BLOOD COUNT 4.87 x10^6/uL (3.82-5.3); RED CELL DISTRIBUTION WIDTH 14.5 % (9.6-15.2)
[2018-06-23 05:11] LABS: ALBUMIN 2.7 g/dL (3.4-5.0); ANION GAP 6 mmol/L (5-15); CALCIUM 8.9 mg/dL (8.5-10.1); CHLORIDE 106 mmol/L (98-107)
[2018-06-23 05:14] LABS: ALANINE AMINOTRANSFERASE 13 U/L (12-78); ALKALINE PHOSPHATASE 110 U/L (45-117); BILIRUBIN,TOTAL 0.8 mg/dL (0.2-1.0); CREATININE 0.28 mg/dL (0.55-1.02)
[2018-06-23] MEDS: POTASSIUM CHLORIDE 20 MEQ TAB.ER.PRT PO SCH ×4 (06:00→19:31)
[2018-06-23] MEDS: ASPIRIN 81 MG TABLET EC PO SCH (06:00)
[2018-06-23] MEDS: METOPROLOL TARTRATE 25 MG TABLET PO SCH (06:00)
[2018-06-23 06:42] VITALS: BP 173/76
[2018-06-23] MEDS ORDERED: MAGNESIUM SULFATE PMX 2GM/50ML 50 ML IV ONE (07:00)
[2018-06-23] MEDS ORDERED: POTASSIUM CHLORIDE 40 MEQ in SODIUM CHLORIDE 0.9% 500 ML IV ONE (07:00)
[2018-06-23] MEDS: INSULIN LISPRO 100 UNITS/ML, PEN SQ-INSULIN SCH ×4 (07:00→21:00)
[2018-06-23] MEDS: HYDROCHLOROTHIAZIDE 25 MG TABLET PO SCH ×2 (09:00→19:31)
[2018-06-23] MEDS: MAGNESIUM HYDROXIDE 8%, 30ML UDC PO SCH (09:00)
[2018-06-23] MEDS: SODIUM CHLORIDE FLUSH 10ML SYR IVF SCH ×2 (09:00→21:00)
[2018-06-23] MEDS: SENNA/DOCUSATE TABLET PO SCH (09:00)
[2018-06-23] MEDS: AMLODIPINE 5 MG TABLET PO SCH (09:00)
[2018-06-23] MEDS: LISINOPRIL 20 MG TABLET PO SCH (09:00)
[2018-06-23] MEDS: CLOPIDOGREL 75 MG TABLET PO SCH (09:00)
[2018-06-23 12:18] VITALS: BP 165/80
[2018-06-23] MEDS: ENOXAPARIN 40 MG/0.4 ML SQ SCH (16:26)
[2018-06-23] MEDS: CEFTRIAXONE PMX 2GM/50ML 50 ML IV SCH (16:33)
[2018-06-23] MEDS: METOPROLOL TARTRATE 50 MG TABLET PO SCH (18:12)
[2018-06-23] MEDS: TAMSULOSIN 0.4 MG CAP.ER.24H PO SCH (19:30)
[2018-06-23] MEDS: ATORVASTATIN 20 MG TABLET PO SCH (19:31)
[2018-06-23 19:51] VITALS: BP 162/79
[2018-06-24 00:16] VITALS: BP 179/84
[2018-06-24] MEDS: hydrALAzine 20 MG/ML, 1ML IV PRN (00:35)
[2018-06-24 01:30] VITALS: BP 155/79
[2018-06-24] MEDS: POTASSIUM CHLORIDE 20 MEQ TAB.ER.PRT PO SCH ×5 (04:55→21:00)
[2018-06-24] MEDS: ASPIRIN 81 MG TABLET EC PO SCH (04:55)
[2018-06-24] MEDS: METOPROLOL TARTRATE 50 MG TABLET PO SCH ×2 (04:56→17:06)
[2018-06-24 05:41] LABS: BASOPHILS # (AUTO) 0.07 x10^3/uL (0-0.1); BASOPHILS % (AUTO) 0 % (0-1); EOSINOPHILS # (AUTO) 0.53 x10^3/uL (0-0.4); EOSINOPHILS % (AUTO) 3 % (1-7); LYMPHOCYTES # (AUTO) 1.86 x10^3/uL (1-3.4); LYMPHOCYTES % (AUTO) 11 % (22-44); MD NO; MEAN CORPUSCULAR HGB CONC 33.7 g/dL (32.4-35.8); MEAN CORPUSCULAR VOLUME 89.1 fL (80-100); MEAN PLATELET VOLUME 8.5 fL (7.4-10.4); MONOCYTES % (AUTO) 6 % (2-9); NEUTROPHILS # (AUTO) 13.55 x10^3/uL (1.8-6.8); NEUTROPHILS % (AUTO) 80 % (42-75); PLATELET COUNT 297 x10^3/uL (130-400); RED BLOOD COUNT 5.16 x10^6/uL (3.82-5.3); RED CELL DISTRIBUTION WIDTH 14.6 % (9.6-15.2)
[2018-06-24 05:51] LABS: ALBUMIN 2.8 g/dL (3.4-5.0); ANION GAP 11 mmol/L (5-15); CALCIUM 9.5 mg/dL (8.5-10.1); CHLORIDE 107 mmol/L (98-107)
[2018-06-24 05:56] LABS: ALANINE AMINOTRANSFERASE 15 U/L (12-78); ALKALINE PHOSPHATASE 124 U/L (45-117); BILIRUBIN,TOTAL 0.8 mg/dL (0.2-1.0); CREATININE 0.31 mg/dL (0.55-1.02); TOTAL PROTEIN 6.3 g/dL (6.4-8.2)
[2018-06-24] MEDS: INSULIN LISPRO 100 UNITS/ML, PEN SQ-INSULIN SCH ×4 (07:00→21:55)
[2018-06-24 07:02] VITALS: BP 152/74
[2018-06-24] MEDS: SODIUM CHLORIDE FLUSH 10ML SYR IVF SCH ×2 (07:52→21:00)
[2018-06-24] MEDS: HYDROCHLOROTHIAZIDE 25 MG TABLET PO SCH ×2 (07:52→21:53)
[2018-06-24] MEDS: AMLODIPINE 5 MG TABLET PO SCH (07:53)
[2018-06-24] MEDS: MAGNESIUM HYDROXIDE 8%, 30ML UDC PO SCH (07:53)
[2018-06-24] MEDS: SENNA/DOCUSATE TABLET PO SCH (07:53)
[2018-06-24] MEDS: CLOPIDOGREL 75 MG TABLET PO SCH (07:53)
[2018-06-24] MEDS: LISINOPRIL 20 MG TABLET PO SCH (07:53)
[2018-06-24] MEDS ORDERED: INSTRUCTION SEE COMMENTS XX PRN (12:30)
[2018-06-24] MEDS: BISACODYL 10 MG SUPP PR SCH (13:00)
[2018-06-24] MEDS ORDERED: POTASSIUM CHLORIDE 40 MEQ in SODIUM CHLORIDE 0.9% 500 ML IV ONE (13:00)
[2018-06-24 14:30] VITALS: BP 162/80
[2018-06-24 16:30] VITALS: BP 171/83
[2018-06-24] MEDS ORDERED: QUETIAPINE 25MG TABLET PO PRN (16:30)
[2018-06-24] MEDS: ENOXAPARIN 40 MG/0.4 ML SQ SCH (17:13)
[2018-06-24] MEDS ORDERED: GADOBUTROL 10 MMOL/10 ML PFS ONE (18:03)
[2018-06-24] MEDS: CEFTRIAXONE PMX 2GM/50ML 50 ML IV SCH (18:39)
[2018-06-24 19:03] VITALS: BP 157/69
[2018-06-24] MEDS: ATORVASTATIN 20 MG TABLET PO SCH (21:53)
[2018-06-24] MEDS: TAMSULOSIN 0.4 MG CAP.ER.24H PO SCH (21:53)
[2018-06-24] MEDS: MELATONIN 3 MG TABLET PO SCH (21:54)
[2018-06-25 01:44] VITALS: BP 163/81
[2018-06-25 05:55] LABS: BASOPHILS # (AUTO) 0.04 x10^3/uL (0-0.1); BASOPHILS % (AUTO) 0 % (0-1); EOSINOPHILS # (AUTO) 0.25 x10^3/uL (0-0.4); EOSINOPHILS % (AUTO) 2 % (1-7); LYMPHOCYTES # (AUTO) 2.05 x10^3/uL (1-3.4); LYMPHOCYTES % (AUTO) 18 % (22-44); MD NO; MEAN CORPUSCULAR HEMOGLOBIN 30.2 pg (27.0-34.8); MEAN CORPUSCULAR HGB CONC 33.9 g/dL (32.4-35.8); MEAN PLATELET VOLUME 8.4 fL (7.4-10.4); MONOCYTES # (AUTO) 0.75 x10^3/uL (0.2-0.8); MONOCYTES % (AUTO) 6 % (2-9); NEUTROPHILS # (AUTO) 8.66 x10^3/uL (1.8-6.8); NEUTROPHILS % (AUTO) 74 % (42-75); PLATELET COUNT 251 x10^3/uL (130-400); RED BLOOD COUNT 4.64 x10^6/uL (3.82-5.3); RED CELL DISTRIBUTION WIDTH 14.7 % (9.6-15.2)
[2018-06-25 06:19] LABS: CHLORIDE 113 mmol/L (98-107)
[2018-06-25 06:54] LABS: ANION GAP 9 mmol/L (5-15); CALCIUM 9.1 mg/dL (8.5-10.1); CREATININE 0.35 mg/dL (0.55-1.02)
[2018-06-25 06:55] LABS: ALANINE AMINOTRANSFERASE 14 U/L (12-78); ALBUMIN 2.4 g/dL (3.4-5.0); ALKALINE PHOSPHATASE 107 U/L (45-117); BILIRUBIN,TOTAL 0.5 mg/dL (0.2-1.0); TOTAL PROTEIN 5.5 g/dL (6.4-8.2)
[2018-06-25] MEDS: INSULIN LISPRO 100 UNITS/ML, PEN SQ-INSULIN SCH ×4 (07:00→21:00)
[2018-06-25 07:15] VITALS: BP 144/74
[2018-06-25] MEDS: MAGNESIUM HYDROXIDE 8%, 30ML UDC PO SCH (09:00)
[2018-06-25] MEDS: SENNA/DOCUSATE TABLET PO SCH (09:00)
[2018-06-25] MEDS: SODIUM CHLORIDE FLUSH 10ML SYR IVF SCH ×2 (09:00→21:00)
[2018-06-25] MEDS: BISACODYL 10 MG SUPP PR SCH (09:00)
[2018-06-25] MEDS: LISINOPRIL 20 MG TABLET PO SCH (09:36)
[2018-06-25] MEDS: AMLODIPINE 5 MG TABLET PO SCH (09:37)
[2018-06-25] MEDS: HYDROCHLOROTHIAZIDE 25 MG TABLET PO SCH ×2 (09:37→22:51)
[2018-06-25] MEDS: CLOPIDOGREL 75 MG TABLET PO SCH (09:37)
[2018-06-25] MEDS: ASPIRIN 81 MG TABLET EC PO SCH (09:38)
[2018-06-25] MEDS: POTASSIUM CHLORIDE 20 MEQ TAB.ER.PRT PO SCH (09:38)
[2018-06-25] MEDS: METOPROLOL TARTRATE 50 MG TABLET PO SCH ×2 (09:38→18:42)
[2018-06-25] MEDS ORDERED: POTASSIUM CHLORIDE 40 MEQ in SODIUM CHLORIDE 0.9% 500 ML IV ONE (12:30)
[2018-06-25 13:00] VITALS: BP 121/70
[2018-06-25] MEDS: POTASSIUM CHLORIDE 10% 40 MEQ/30 ML UDC PO SCH ×2 (13:10→22:50)
[2018-06-25] MEDS: CEFTRIAXONE PMX 2GM/50ML 50 ML IV SCH (18:41)
[2018-06-25] MEDS: ENOXAPARIN 40 MG/0.4 ML SQ SCH (18:41)
[2018-06-25 19:02] VITALS: BP 118/69
[2018-06-25] MEDS: TAMSULOSIN 0.4 MG CAP.ER.24H PO SCH (22:50)
[2018-06-25] MEDS: ATORVASTATIN 20 MG TABLET PO SCH (22:50)
[2018-06-25] MEDS: MELATONIN 3 MG TABLET PO SCH (22:51)
[2018-06-26 06:10] LABS: CHLORIDE 112 mmol/L (98-107)
[2018-06-26 06:12] LABS: BASOPHILS # (AUTO) 0.06 x10^3/uL (0-0.1); BASOPHILS % (AUTO) 1 % (0-1); EOSINOPHILS # (AUTO) 0.32 x10^3/uL (0-0.4); EOSINOPHILS % (AUTO) 3 % (1-7); LYMPHOCYTES # (AUTO) 1.75 x10^3/uL (1-3.4); LYMPHOCYTES % (AUTO) 17 % (22-44); MD NO; MEAN CORPUSCULAR HEMOGLOBIN 29.8 pg (27.0-34.8); MEAN CORPUSCULAR HGB CONC 33.7 g/dL (32.4-35.8); MEAN CORPUSCULAR VOLUME 88.6 fL (80-100); MEAN PLATELET VOLUME 8.7 fL (7.4-10.4); MONOCYTES # (AUTO) 0.84 x10^3/uL (0.2-0.8); MONOCYTES % (AUTO) 8 % (2-9); NEUTROPHILS # (AUTO) 7.36 x10^3/uL (1.8-6.8); NEUTROPHILS % (AUTO) 71 % (42-75); PLATELET COUNT 232 x10^3/uL (130-400); RED BLOOD COUNT 4.65 x10^6/uL (3.82-5.3); RED CELL DISTRIBUTION WIDTH 15.2 % (9.6-15.2)
[2018-06-26 06:30] LABS: ANION GAP 9 mmol/L (5-15); CALCIUM 9.6 mg/dL (8.5-10.1); CREATININE 0.44 mg/dL (0.55-1.02)
[2018-06-26 06:46] VITALS: BP 148/77
[2018-06-26] MEDS: ASPIRIN 81 MG TABLET EC PO SCH (06:46)
[2018-06-26] MEDS: METOPROLOL TARTRATE 50 MG TABLET PO SCH ×2 (06:46→17:11)
[2018-06-26] MEDS: INSULIN LISPRO 100 UNITS/ML, PEN SQ-INSULIN SCH ×4 (07:00→21:00)
[2018-06-26] MEDS: POTASSIUM CHLORIDE 20 MEQ PACKET PO SCH ×2 (09:00→22:14)
[2018-06-26] MEDS: MAGNESIUM HYDROXIDE 8%, 30ML UDC PO SCH (09:00)
[2018-06-26] MEDS: LISINOPRIL 20 MG TABLET PO SCH (09:00)
[2018-06-26] MEDS: SODIUM CHLORIDE FLUSH 10ML SYR IVF SCH ×2 (09:00→21:00)
[2018-06-26] MEDS: AMLODIPINE 5 MG TABLET PO SCH (09:00)
[2018-06-26] MEDS: SENNA/DOCUSATE TABLET PO SCH (09:00)
[2018-06-26] MEDS: HYDROCHLOROTHIAZIDE 25 MG TABLET PO SCH ×2 (09:00→22:14)
[2018-06-26] MEDS: BISACODYL 10 MG SUPP PR SCH (09:00)
[2018-06-26] MEDS: CLOPIDOGREL 75 MG TABLET PO SCH (09:00)
[2018-06-26] MEDS ORDERED: POTA20PA25 PO (13:10)
[2018-06-26] MEDS ORDERED: QUET25TA PO (13:10)
[2018-06-26] MEDS ORDERED: INSU100I11 SQ-INSULIN (13:10)
[2018-06-26] MEDS ORDERED: HYDR25TA6 PO (13:10)
[2018-06-26] MEDS ORDERED: METO50TA82 PO (13:10)
[2018-06-26] MEDS ORDERED: HYDR-3341 PO (13:10)
[2018-06-26] MEDS ORDERED: ENOX40SY4 SQ (13:10)
[2018-06-26] MEDS ORDERED: SENN1TAB8 PO (13:10)
[2018-06-26] MEDS ORDERED: CLON0.2T10 PO (13:10)
[2018-06-26] MEDS ORDERED: MELA3TAB2 PO (13:10)
[2018-06-26 13:25] VITALS: BP 129/70
[2018-06-26] MEDS ORDERED: CEFTRIAXONE PMX 2GM/50ML 50 ML IV SCH (15:00)
[2018-06-26] MEDS: ENOXAPARIN 40 MG/0.4 ML SQ SCH (17:11)
[2018-06-26 20:44] VITALS: BP 143/80
[2018-06-26] MEDS: TAMSULOSIN 0.4 MG CAP.ER.24H PO SCH (22:15)
[2018-06-26] MEDS: ATORVASTATIN 20 MG TABLET PO SCH (22:15)
[2018-06-26] MEDS: MELATONIN 3 MG TABLET PO SCH (22:15)
[2018-06-27 02:25] VITALS: BP 155/82
[2018-06-27 06:34] VITALS: BP 182/95
[2018-06-27] MEDS: METOPROLOL TARTRATE 50 MG TABLET PO SCH (06:36)
[2018-06-27] MEDS: ASPIRIN 81 MG TABLET EC PO SCH (06:36)
[2018-06-27 07:00] VITALS: BP 182/95
[2018-06-27 07:55] VITALS: BP 131/68
[2018-06-27] MEDS: INSULIN LISPRO 100 UNITS/ML, PEN SQ-INSULIN SCH ×2 (08:40→11:00)
[2018-06-27] MEDS: CLOPIDOGREL 75 MG TABLET PO SCH (08:40)
[2018-06-27] MEDS: LISINOPRIL 20 MG TABLET PO SCH (08:40)
[2018-06-27] MEDS: AMLODIPINE 5 MG TABLET PO SCH (08:40)
[2018-06-27] MEDS: SODIUM CHLORIDE FLUSH 10ML SYR IVF SCH (08:41)
[2018-06-27] MEDS: MAGNESIUM HYDROXIDE 8%, 30ML UDC PO SCH (08:41)
[2018-06-27] MEDS: HYDROCHLOROTHIAZIDE 25 MG TABLET PO SCH (08:41)
[2018-06-27] MEDS: SENNA/DOCUSATE TABLET PO SCH (08:42)
[2018-06-27] MEDS: BISACODYL 10 MG SUPP PR SCH (08:42)
[2018-06-27 12:55] VITALS: BP 146/86
[2018-06-27 13:38] VITALS: BP 146/86
== END 2018-06-27 15:36 | DRG 871 ==
LOC: ED 17:19 → EDIP 17:32 → 3NE 18:46 → 4WST 06-24 13:14
PROVIDERS: ADMIT Internal Medicine; ATTEND Internal Medicine
PROC: 0T9B70Z Drainage of Bladder with Drainage Device, Via Natural or Artificial Opening (ICD-10-PCS; principal; 2018-06-12)
DX: A41.9 Sepsis, unspecified organism (principal); N17.0 Acute kidney failure with tubular necrosis; E44.1 Mild protein-calorie malnutrition; E87.0 Hyperosmolality and hypernatremia; G93.49 Other encephalopathy; N13.6 Pyonephrosis; Z88.8 Allergy status to other drugs, medicaments and biological substances; B96.20 Unspecified Escherichia coli [E. coli] as the cause of diseases classified elsewhere; E11.649 Type 2 diabetes mellitus with hypoglycemia without coma; E11.65 Type 2 diabetes mellitus with hyperglycemia; E83.42 Hypomagnesemia; E86.0 Dehydration; E87.6 Hypokalemia; E87.8 Other disorders of electrolyte and fluid balance, not elsewhere classified; F01.50 Vascular dementia, unspecified severity, without behavioral disturbance, psychotic disturbance, mood disturbance, and anxiety; I10 Essential (primary) hypertension; I69.30 Unspecified sequelae of cerebral infarction; K59.00 Constipation, unspecified; K76.89 Other specified diseases of liver; K80.20 Calculus of gallbladder without cholecystitis without obstruction; R13.10 Dysphagia, unspecified; D18.00 Hemangioma unspecified site; Z79.82 Long term (current) use of aspirin; Z79.84 Long term (current) use of oral hypoglycemic drugs; Z79.899 Other long term (current) drug therapy
CPT/HCPCS: 36415; 70450; 70553; 71045; 74177; 76770; 80048; 80053; 81001; 82140; 82607; 82962; 83036; 83605; 83735; 84100; 84145; 84439; 84443; 84484; 85025; 87040; 87077; 87086; 87186; 93005; 96374; 99285; A9585; G0378; J0696; J1644; J1650; J2405; J2543; J3480; Q0162; Q9967; 92523-GN; G0515-GN; J0360; J1815; J3475; J7030; J7040